=== PATIENT | male | born 1945 | race Caucasian/White ===

== ENCOUNTER 2020-11-05 10:46 | Emergency (ER) | payer MEDICARE, OTHER ==
[~2020-11-05] VITALS: Ht 175.3 cm; Wt 93.9 kg
[2020-11-05] MEDS ORDERED: SYNTHROID75 MCG PO (11:06)
--- NOTE | 2020-11-05 14:19 | EKG ---
[facility] [address] [facility] [place] [address] Signed Sinus rhythm with premature supraventricular complexes Otherwise normal ECG Confirmed by LAILA LINARES MD ([id number]) on 11/05/2020 2:19:32 PM Electronically Signed By: LAILA LINARES MD 11/05/20 1419 PATIENT NAME: TRINH JONES Electrocardiogram DATE OF : 41 PHYSICIAN: LAILA LINARES MD REPORT #: [id number] REPORT IS CONFIDENTIAL AND NOT TO BE RELEASED WITHOUT AUTHORIZATION
[2020-11-05] MEDS ORDERED: PRILOSEC OTC20 MG PO (14:43)
== END 2020-11-05 15:01 | disposition home or self-care (01) ==
LOC: ED 10:46
DX: R07.89 Other chest pain (principal); Z87.891 Personal history of nicotine dependence; Z88.5 Allergy status to narcotic agent; Z79.899 Other long term (current) drug therapy
CPT/HCPCS: 71045; 71260; 80053; 83735; 84484; 85025; 85379; 93005; 93010; 94640; 99285-25; Q9967